=== PATIENT | female | born 1970 | race Caucasian/White ===

== ENCOUNTER 2018-07-04 20:38 | Inpatient (IN) | payer OTHER ==
[~2018-07-04] VITALS: Ht 152.4 cm; Wt 72.6 kg
[2018-07-04] MEDS ORDERED: SIMVASTATIN20 MG (21:01)
[2018-07-04] MEDS ORDERED: LOSARTAN-HCTZ1 EAC2 (21:01)
[2018-07-04] MEDS ORDERED: METFORMIN HCL500 MG (21:01)
--- NOTE | 2018-07-04 21:02 | NUR ---
SE RECIBE PTE LA CUAL REFIERE PRESENTAR VARIOS EPISODIOS DE DIARREA TENIENDO MAS DE 6 Y VOMITOS. PTE INDICA QUE PRESENTA DOLOR ABD KRIS.
--- NOTE | 2018-07-04 23:37 | NUR ---
MISS. KHAN ORIENTA A PACIENTE SOBRE TRATAMIENTO. MONSTER MUESTRAS DE LABORAORIO ORDENADAS. CANALIZA CON AREA DE VENOPUNCION GRISELDA DE EDEMA O ENROJECIMIENTO. ADMINISTRA MEDICAMENTOS ORDENADOS,. SE MANTIENE EN OBSERVACION POR CAMBIOS.
== END 2018-07-09 15:05 | disposition home or self-care (01) | DRG 392 ==
LOC: ER → SURG 07-05 15:19 → SEC-K 07-05 15:19 → SURG 07-05 23:20 → MEDJ 07-06 14:21
PROVIDERS: ADMIT Internal Medicine
PROC: 8E0ZXY6 Isolation (ICD-10-PCS; principal; 2018-07-05)
PROC: B54DZZZ Ultrasonography of Bilateral Lower Extremity Veins (ICD-10-PCS; 2018-07-09)
DX: A08.0 Rotaviral enteritis (principal); E78.49 Other hyperlipidemia; K64.8 Other hemorrhoids; K64.4 Residual hemorrhoidal skin tags; I10 Essential (primary) hypertension; I87.2 Venous insufficiency (chronic) (peripheral)

== ENCOUNTER 2019-07-05 06:00 | Day surgery (SDC) | payer OTHER ==
[~2019-07-05 06:00] MED LIST: CYMBALTA60 MG PO; LOSARTAN-HCTZ1 EAC2; METFORMIN HCL500 MG; SIMVASTATIN20 MG PO
== END 2019-07-05 19:40 | disposition home or self-care (01) ==
LOC: CIR.AMB 06:00
PROVIDERS: Plastic Surgery; Surgery
PROC: C71L1ZZ Planar Nuclear Medicine Imaging of Upper Chest Lymphatics using Technetium 99m (Tc-99m) (ICD-10-PCS; 2019-07-05)
PROC: 0HBV0ZZ Excision of Bilateral Breast, Open Approach (ICD-10-PCS; 2019-07-05)
PROC: 0HBU0ZZ Excision of Left Breast, Open Approach (ICD-10-PCS; principal; 2019-07-05 20:30)
PROC: 07B60ZZ Excision of Left Axillary Lymphatic, Open Approach (ICD-10-PCS; 2019-07-05 20:30)
DX: C50.412 Malignant neoplasm of upper-outer quadrant of left female breast (principal); Z41.1 Encounter for cosmetic surgery; N62 Hypertrophy of breast
CPT/HCPCS: 19301; 38525; 38792; 19318; 78195; A9541

== ENCOUNTER 2019-07-24 06:05 | Day surgery (SDC) | payer OTHER | END 2019-07-24 14:00 | disposition home or self-care (01) | LOC: CIR.AMB 06:05 | DX: C50.411 Malignant neoplasm of upper-outer quadrant of right female breast (principal) ==